=== PATIENT | female | born 1995 | race Caucasian/White ===

== ENCOUNTER 2017-01-08 15:02 | Emergency (ER) | payer MEDICAID ==
[~2017-01-08] VITALS: Ht 162.6 cm; Wt 52.3 kg
[2017-01-08 17:32] LABS: BASOPHIL % 0.5 % (0-2); PLATELET COUNT 288 x10^3mcL (130-400)
[2017-01-08 17:35] LABS: UA SPECIFIC GRAVITY <=1.005 (1.005-1.035); microscopic required? YES; urine erythrocyte TRACE (NEGATIVE)
[2017-01-08 19:25] VITALS: BP 112/69
== END 2017-01-08 19:25 | disposition home or self-care (01) ==
LOC: ED 15:02
PROVIDERS: Emergency Medicine
DX: O20.0 Threatened abortion (principal); O23.41 Unspecified infection of urinary tract in pregnancy, first trimester; Z3A.01 Less than 8 weeks gestation of pregnancy
CPT/HCPCS: 36415

== ENCOUNTER 2020-01-24 22:36 | Emergency (ER) | payer MEDICAID ==
[~2020-01-24] VITALS: Ht 149.9 cm; Wt 48.5 kg
[2020-01-24 22:41] VITALS: Ht 149.9 cm; Wt 48.5 kg
[2020-01-25 01:25] VITALS: BP 109/70
== END 2020-01-25 01:25 | disposition home or self-care (01) ==
LOC: ED 22:36
DX: F41.9 Anxiety disorder, unspecified (principal)
CPT/HCPCS: J7030